=== PATIENT | male | born 1995 | race Caucasian/White ===

== ENCOUNTER 2019-11-20 06:22 | Day surgery (SDC) | payer OTHER ==
[2019-11-19 11:59] VITALS: BMI 27.1
[2019-11-20] MEDS ORDERED: BUPIVACAINE LIPOSOME/PF (EXPAREL) 266 MG/20 ML VIAL ONE (07:31)
[2019-11-20] MEDS ORDERED: FLUMAZENIL 0.5 MG/5 ML VIAL ONE (07:34)
[2019-11-20] MEDS ORDERED: MIDAZOLAM HCL 2 MG/2 ML SINGLE DOSE VIAL ONE ×5 (07:34→07:43)
[2019-11-20] MEDS ORDERED: SODIUM CHLORIDE 0.9% P/F 10 ML VIAL IJ ONE (07:34)
[2019-11-20] MEDS ORDERED: SUCCINYLCHOLINE CHLORIDE 200 MG/10 ML SYRINGE ONE (07:42)
[2019-11-20] MEDS ORDERED: EPHEDRINE SULFATE/0.9% NACL/PF 50 MG/10 ML SYRINGE NR ONE (07:42)
[2019-11-20] MEDS ORDERED: ceFAZolin 2 GRAM PREMIX BAG IVPB ONE ×2 (08:20→10:47)
[2019-11-20] MEDS ORDERED: PROPOFOL 20 ML ONE ×5 (09:13→10:49)
[2019-11-20] MEDS ORDERED: HYDROmorphone HCl 2 MG/ML VIAL ONE (10:01)
[2019-11-20] MEDS ORDERED: LIDOCAINE HCL/PF 2% SDV 5ML VIAL ONE (10:34)
[2019-11-20] MEDS ORDERED: DEXAMETHASONE SOD PHOSPHATE 4 MG/1 ML VIAL ONE (10:34)
[2019-11-20] MEDS ORDERED: LIDOCAINE HCL 2% JELLY (5 ML/TUBE) ONE (10:34)
[2019-11-20] MEDS ORDERED: ceFAZolin SODIUM 1 GM VIAL ONE (10:34)
--- NOTE | 2019-11-20 10:50 | HP ---
Satellite PM - Chief Complaint Chief Complaint: right knee pain, instability - Past Medical History Allergies/Adverse Reactions: Allergies Allergy/AdvReac Type Severity Reaction Status Date / Time gluten Allergy Verified 11/20/19 06:54 - Current Medications Current Medications: Home Medications Medication Instructions Recorded Oxycodone HCl/Acetaminophen 1 - 2 tab PO Q6H #30 tab MDD 6 11/20/19 [Percocet 5-325 mg Tablet] Satellite Physical Exam - Physical Examination Vital Signs: Vital Signs Period Temp Pulse Resp BP Sys/Hernandez Pulse Ox Last 24 Hr 97.8 F 86 18 135/76 100 General Appearance: Well Nourished, Well Developed, Alert & Oriented x3 ENT: Clear Lung: Normal air movement Extremities: Other (right knee- + swelling, + ttp, + denis, + ant draw, + pivot, + dial, + varus, nvi) Neurological: Intact, Alert, Oriented Satellite Impression/Plan - Impression/Plan Impression: right knee internal derangement Operative Procedure: right knee arthroscopy, ACL reconstruction using graftlink, posterior lateral corner reconstruction using allograft, PM Date to be Performed: 11/20/19
--- NOTE | 2019-11-20 10:50 | OP ---
Operative Note - Note: Operative Date: 11/20/19 ([facility]) Pre-Operative Diagnosis: right knee internal derangement Operation: right knee arthroscopy, ACL reconstruction using graftlink, posterior lateral corner reconstruction using allograft, PMM Post-Operative Diagnosis: Same as Pre-op Surgeon: Bin Cohen Bisque Tile Burner: Adriano Kahn (ileana dudley) Anesthesia: General, Local Specimens Removed: shavings Estimated Blood Loss (mls): 50
[2019-11-20] MEDS ORDERED: ONDANSETRON 4 MG/2 ML VIAL IVPUSH PRN (13:21)
[2019-11-20] MEDS ORDERED: oxyCODONE HCL 5 MG TABLET PO PRN (13:21)
[2019-11-20] MEDS ORDERED: LACTATED RINGERS SOLUTION 1,000 ML IV SCH (13:30)
[2019-11-20 14:27] VITALS: BP 143/84; PULSE 64; TEMP 98.3
--- NOTE | 2019-11-21 11:45 | OP ---
DATE OF OPERATION: 11/20/2019 PREOPERATIVE DIAGNOSIS: Right anterior cruciate ligament tear, posterolateral complex tear, lateral meniscus tear. POSTOPERATIVE DIAGNOSIS: Right anterior cruciate ligament tear, posterolateral complex tear, lateral meniscus tear. PROCEDURE: 1. Anterior cruciate ligament reconstruction using GraftLink. 2. Open right posterolateral corner reconstruction using TightRopes and screw fixation. 3. Partial lateral meniscectomy. SURGICAL ATTENDING: Bin Cohen MD PATIENT CARE REPRESENTATIVE: Lexx Owen MD SECOND USED CAR LOT PORTER: ROSE Enriquez ANESTHESIA: Regional and general. CLOSURE: GraftLink for ACL, semitendinosus, and TightRope for PLC, and 3-0 nylon for skin, 0 Vicryl fascia, 2-0 subcutaneous, and 3-0 Monocryl subcuticular for skin laterally. COMPLICATIONS: None. CONDITION: To recovery room in stable condition. INDICATION FOR OPERATIVE PROCEDURE: Patient was taken to the operating room on November 20, 2019. The patient and mother were apprised that we would make a final decision of which procedure we are going to be performing once the patient was anesthetized and an excellent clinical exam was obtained. This was performed, and it showed that the patient did have instability in the posterolateral corner as well as ACL instability. It was thus decided to do a reconstruction of both structures using allograft. The choice of allograft was again discussed with patient and with mother in great detail prior to the surgery, and we had decided that if we were going to fix both ligaments that we were going to use allograft for both. DESCRIPTION OF THE OPERATIVE PROCEDURE: Patient was taken to the operating room on November 20, 2019. Regional and general anesthesia were administered by the anesthesiologist. IV Kefzol was administered prophylactically prior to the case. Well-padded pneumatic tourniquet was placed on the right proximal thigh. Again, the physical exam revealed instability in both anterior drawer and Fiorella as well as instability to varus stress at 30 and 60 degrees. First a diagnostic arthroscopy was performed. Superomedial, inferomedial, and lateral portals were made with 15-blade followed by blunt trocar. Superomedial was the outflow, inferolateral was the scope trocar, and the inferomedial was the working portal. The scope was placed up into the suprapatellar pouch. Pouch was visualized to be clean and the lateral gutter visualized to be clean. The undersurface of the patella and trochlea were visualized to be intact with valgus stress on the knee. Medial compartment was entered. Medial meniscus was visualized, probed, found to be intact. The medial femoral condyle was run and found to be intact, as was the medial tibial plateau. At 90 degrees the ACL was visualized to be completely torn. The PCL was intact. In the figure 4 position, the lateral meniscus was found to have a complete flap tear of its posterior horn. This was debrided back to smooth, stable meniscal tissue with meniscal biter and arthroscopic shaver. The morphology did not allow for repair. The anterior part of the meniscus was balanced and was stable. Drivethrough on the lateral side revealed opening laterally. I was able to drive all the way back to the popliteus with the scope. Next, the ACL portion was performed. A notchplasty was then performed, gaining some additional width and height of the notch. Using a FlipCutter and the inside out, over the top guide, the femoral portal was made in the posterior aspect of the notch and retrograde drilling with the FlipCutter only to a depth of 25 mm. A suture stick was placed down the tunnel and was delivered out the inferolateral portal for later shuttling of the graft. The ACL tibial guide was then used to drill the FlipCutter from the anteromedial proximal tibia into the knee just anterior to the PCL, then the FlipCutter was used to retrograde drill a 9.5-mm tunnel in the tibia, not violating the cortex. A suture stick was then placed up this tunnel and delivered out of the same inferomedial portal. Both femoral and the tibial sutures were pulled together out the portal so there would not be any intervening soft tissue bridge. All particulate in the knee was debrided using the shaver. The GraftLink which had been prepared on the back table was then delivered into the knee using the toggle suture to pull the femoral portion up into the femoral tunnel, and pulling the sutures down into the tibial tunnel. Both were advanced into their respective tunnels to the appropriate depth. The tibial button was then deployed, and both were provisionally toggled just to keep the graft in place. We were going to hold off on final tensioning of the graft until after we performed the lateral collateral ligament posterior corner reconstruction. The knee was taken through a range of motion, found there was no impingement on the notch throughout the range of motion. Next, our attention was directed to the posterolateral corner of the knee. This part of the procedure was done in open fashion. A long, curved longitudinal incision up from the fibular head and curving more posteriorly along the lateral side of the thigh was incised, hemostasis achieved with Bovie cautery. Sharp dissection was carried down to the fascia. The first thing performed was to isolate the peroneal nerve as it crossed over the fibula. It was initially palpated and then dissected out using a Metzenbaum until we had mobilized the tendon with a Vesseloop away from the operative field and were able to protect it throughout the procedure. A 15-blade was used to remove the periosteum on the superior port of the fibula head all the way to the back. The biceps femoris tendon was left in situ. A 6-mm tunnel was then drilled from anterolateral to posteromedial about 1.5 cm down from the tip of the fibula. A shuttle suture was then placed through this tunnel. Again, throughout this part of the procedure, the peroneal nerve was gently retracted and was visualized not to come in contact with any drills and retractors. The site of the insertion of the FCL and the popliteus tendon in the lateral femoral condyle was identified. The fascia just below the ITB was developed and opened. Two spaded Beath pins were drilled from lateral to medial in an upward superior fashion to stay away from any potential interference with the ACL graft exiting the medial thigh. The spaded portion was pulled back to get a length of the pin. It was then overreamed with a 6-mm reamer to a 30-mm depth for both of them. Traction sutures were then placed down each one of these tunnels as well. The graft was then pulled into the more anterior portal, and the button was engaged on the far cortex, ensuring that there was at least 25 mm of tendon in the femur. The graft was passed underneath the biceps femoris, and it was passed into the tunnel in the superior part of the fibula until it exited posteriorly. It then was pulled back up to the lateral femoral condyle to the more posterior tunnel and was pulled into the tunnel using the Beath pin. The button was engaged on the more medial cortex. The anterior limb was tensioned at 30 degrees. The posterior limb was tensioned at 60 degrees, and then a screw was placed in the fibula to stop window washing of the tendon, which was a bioabsorbable screw. The ACL was then re-toggled both in flexion and extension. Again, the lateral reconstruction was re-tensioned as well, achieving excellent stability. The knee was taken through a range of motion to full extension, full flexion; had a negative Fiorella, negative anterior, posterior drawer; negative instability to varus, valgus stress at 0, 30, 60, and 90 degrees of flexion. All sutures were cut flush with the bone. The open incision was closed with 0 Vicryl suture for the fascia, 2-0 subcutaneous, and 3-0 Monocryl for the skin. Again the peroneal nerve was identified and was ensured to be protected during the closure at all times. The rest of the portal incisions and insertions of the ACL were closed with 3-0 nylon suture. Sterile pressure dressing followed by a knee immobilizer was applied. The tourniquet was inflated just for about a half an hour while doing the lateral side of the procedure, was deflated prior to closure, and hemostasis was achieved and the tourniquet was deflated. Total tourniquet time again was approximately 35-40 minutes. Patient was then transferred to recovery room in stable condition. After being in the recovery room waking up, patient had full active dorsi and plantarflexion of the ankle and extension of the great toe. No complications. Estimated blood loss negligible. Carin [id number]
--- NOTE | 2019-11-22 18:07 | PATH ---
Surgical Pathology Report Patient Name: KAYLA DE [facility]. Rec. #: [id number] /Age/Gender: 1995 (Age: 24) / M Account: [id number] Location: [facility] SURGICAL Taken: 11/20/2019 Received: 11/20/2019 Reported: 11/22/2019 Physicians: Bin Cohen M.D. Specimen(s) Received RIGHT KNEE SHAVINGS Clinical History Right ACL tear Final Diagnosis RIGHT KNEE SHAVINGS: SYNOVIAL TISSUE WITH FOCAL REACTIVE CHANGE. SEPARATE FRAGMENTS OF BONE AND CARTILAGE WITH NO SIGNIFICANT PATHOLOGIC CHANGE. Electronically Signed Abram Gonzales M.D. Gross Description Received in formalin labeled "right knee shavings," is a 2.5 x 2.5 x 0.2 cm aggregate of lucio-yellow soft tissue fragments. The formalin is filtered and customer solutions representative portions are submitted in one cassette. KWChacha/11/20/2019 gerard/11/20/2019
== END 2019-11-20 14:50 | disposition home or self-care (01) ==
LOC: JASU-SURG 06:22
PROVIDERS: ATTEND Orthopaedic Surgery
PROC: 0SBC4ZZ Excision of Right Knee Joint, Percutaneous Endoscopic Approach (ICD-10-PCS; 2019-11-20)
PROC: 0MRN4JZ Replacement of Right Knee Bursa and Ligament with Synthetic Substitute, Percutaneous Endoscopic Approach (ICD-10-PCS; principal; 2019-11-20 08:00)
DX: S83.511A Sprain of anterior cruciate ligament of right knee, initial encounter (principal); S83.281A Other tear of lateral meniscus, current injury, right knee, initial encounter; S83.421A Sprain of lateral collateral ligament of right knee, initial encounter; X58.XXXA Exposure to other specified factors, initial encounter; Y93.9 Activity, unspecified; Y92.9 Unspecified place or not applicable; Y99.9 Unspecified external cause status
CPT/HCPCS: 27427; 29881; 29888; C1713; 88304-TC; 94760